=== PATIENT | male | born 1990 | race Caucasian/White ===

== ENCOUNTER 2019-09-30 11:55 | Inpatient (IN) | payer SELFPAY ==
[~2019-09-30] VITALS: Ht 180.3 cm; Wt 128.5 kg
[~2019-09-30 11:55] MED LIST: CLARITIN10 MG PO; CLINDAMYCIN HC300 MG PO; MEDROL DOSEPAK4 MG PO; PROVENTIL0.09 MG/AC IH; TRIMOX500 MG PO; ZITHROMAX Z PA250 MG PO
[2019-09-30 12:02] VITALS: BP 157/83
--- NOTE | 2019-09-30 12:15 | NUR ---
DOCUMENTED O2 SAT @ 87%. THIS WAS OBSERVED BY DR. KATE. I WAS ASKED TO DOCUMENT IT IN THE VITALS. I DID NOT OBSERVE. OXYGEN WAS STARTED VIA NASAL CANULA AT 4 LITERS.
[2019-09-30 12:31] LABS: BASO # 0.1 10*3/uL (0.0-0.1); BASO % 0.5 % (0.0-1.0); EOS # 0.3 10*3/uL (0.0-0.4); EOS % 1.4 % (1.0-4.0); HEMOGLOBIN 14.8 g/dl (14.0-18.0); LYMPH % 16.6 % (27.0-41.0); MEAN CELL VOLUME 91.6 fl (80.0-94.0); MEAN CORPUSCULAR HGB 30.1 pg (27.0-31.0); MEAN CORPUSCULAR HGB CONC 32.9 g/dl (33.0-37.0); MEAN PLATELET VOLUME 9.7 fl (9.6-12.3); MONO # 1.1 10*3/uL (0.1-1.0); MONO % 5.8 % (3.0-9.0); NEUT # 13.6 10*3/uL (2.3-7.9); NEUT % 75.3 % (47.0-73.0); PLATELET COUNT AUTOMATED 328 10*3/uL (130-400); RED BLOOD COUNT 4.91 10*6/uL (4.50-5.90); RED CELL DISTRI WIDTH 13.2 % (0-14.5)
[2019-09-30 12:44] LABS: ACT PARTIAL THROMBO TIME 27.3 SECONDS (20.0-32.1); INTERNATIONAL NORM RATIO 0.9 (2.0-3.5)
[2019-09-30 12:49] LABS: ALBUMIN 4.2 gm/dl (3.1-4.5); ALKALINE PHOSPHATASE 63 U/L (45-117); BUN 16 mg/dl (7-24); CHLORIDE 110 mmol/L (98-107); CREATININE 0.95 mg/dL (0.70-1.30); SGOT/AST 15 IU/L (3-35); SGPT/ALT 40 U/L (12-78); SODIUM 140 mmol/L (136-145)
[2019-09-30 13:31] VITALS: BP 132/62
[2019-09-30 14:02] VITALS: BP 148/78
[2019-09-30 15:53] VITALS: BP 161/67
[2019-09-30 16:30] VITALS: BP 149/76
--- NOTE | 2019-09-30 16:30 | NUR ---
A 29, admitted to , under the services of LUIS DANIEL Dominguez DO with a diagnosis of BRONCHITIS. Chief complaint is SHORTNESS OF BREATH. Patient arrived via stretcher from ER. Monitor applied. Initial assessment completed. Vital signs taken and recorded. LUIS DANIEL DOMINGUEZ DO notified of admission to the unit. Orders received. See assessment for past medical history, medications and allergies. Patient and/or family oriented to unit. [address] visitation policy reviewed. Clothing/patient valuable form completed. RHODA SUNSHINE
--- NOTE | 2019-09-30 19:50 | NUR ---
24 HR chart check completed.
[2019-09-30 20:00] VITALS: BP 135/51
--- NOTE | 2019-09-30 21:00 | NUR ---
AWAKE, WATCHING TV. NO DISTRESS NOTED. RESPIRATIONS EASY. LUNGS DIMINISHED WITH I&E WHEEZES. PULSE OX 95% 2L. OCCASIONAL PRODUCTIVE COUGH. CALL LIGHT WITHIN REACH. NO VOICED COMPLAINTS
[2019-10-01] VITALS: BP 147/68
--- NOTE | 2019-10-01 | NUR ---
SLEEPING. NO DISTRESS NOTED. RESPIRATIONS EASY. PULSE OX 95% 2L. VSS. CALL LIGHT WITHIN REACH
--- NOTE | 2019-10-01 06:00 | NUR ---
SLEPT THROUGHOUT NIGHT WITH NO DISTRESS NOTED. RESPIRATIONS EASY. O2 IN USE. CALL LIGHT WITHIN REACH. NO VOICED COMPLAINTS THIS SHIFT
[2019-10-01 06:48] LABS: HEMATOCRIT 43.7 % (42.0-52.0); HEMOGLOBIN 14.4 g/dl (14.0-18.0); MEAN PLATELET VOLUME 9.8 fl (9.6-12.3); PLATELET COUNT AUTOMATED 310 10*3/uL (130-400); RED CELL DISTRI WIDTH 13.2 % (0-14.5); WHITE BLOOD COUNT 15.2 10*3/uL (4.8-10.8)
[2019-10-01 07:03] LABS: BUN 11 mg/dl (7-24); CHLORIDE 109 mmol/L (98-107); CREATININE 0.85 mg/dL (0.70-1.30); PHOSPHOROUS 1.9 mg/dL (2.5-4.9); SODIUM 139 mmol/L (136-145)
[2019-10-01 07:13] LABS: PLATELET SUFFICIENCY NORMAL (NORMAL); TOTAL CELLS COUNTED 100 #CELLS
--- NOTE | 2019-10-01 09:00 | NUR ---
Senior Network Security Engineer in to talk to patient. Patient states lives at home with antonette. There are on steps in the home. Physician: none [facility]acy: [facility] Home health services: none Patient's level of ADLs: INDEPENDENT Patient has working utilities: all working DME: none Follow-up physician's appointment after d/c: will be made by hospitalist nurse director with doctor of patient's choice Does patient want to access PORTAL?: no Discharge plan discussed with patient, he lives at home with fiarturo, he is independent in adls and ambulation, he will return home when medically stable and denies any home needs. HERBERTH HAYES
--- NOTE | 2019-10-01 09:35 | NUR ---
pt was assessed for home oxygen. pt did not qualify. pt at rest spo2 92% ra, hr 79, rr, b/p 159/81 pt ambulated spo2 92-93% ra pt at rest spo2 94% ra, hr 99, rr 20, b/p 158/80 rn nottified and notified
--- NOTE | 2019-10-01 09:38 | NUR ---
pt instructed on flutter. pt tolerated well, pt can do on his own
[2019-10-01] MEDS ORDERED: PREDNISONE10 MG PO (10:11)
[2019-10-01] MEDS ORDERED: ZITHROMAX250 MG PO (10:11)
[2019-10-01] MEDS ORDERED: PROVENTIL HFA6.7 GM INH (10:11)
--- NOTE | 2019-10-01 10:59 | NUR ---
PT DISCHRGED HOME AT THIS TIME. PT INFORMED THAT HIS PRESCRIPTION WERE SENT TO [facility] TO BE FILLED. F/U CARE ARRANGED. PT AMBULATED OFF FLOOR.
== END 2019-10-01 10:59 | disposition home or self-care (01) | DRG 871 ==
LOC: ED 11:55 → 5E 13:41 → EDHOLD 13:41 → 5E 15:33
PROVIDERS: Emergency Medicine; Student in an Organized Health Care Education/Training Program; ADMIT Internal Medicine
DX: A41.9 Sepsis, unspecified organism (principal); J96.01 Acute respiratory failure with hypoxia; J40 Bronchitis, not specified as acute or chronic; F17.210 Nicotine dependence, cigarettes, uncomplicated; E87.8 Other disorders of electrolyte and fluid balance, not elsewhere classified; J98.6 Disorders of diaphragm; J45.20 Mild intermittent asthma, uncomplicated; E83.39 Other disorders of phosphorus metabolism; E83.41 Hypermagnesemia; R73.9 Hyperglycemia, unspecified; E66.01 Morbid (severe) obesity due to excess calories; Z87.01 Personal history of pneumonia (recurrent); Z82.49 Family history of ischemic heart disease and other diseases of the circulatory system; Z90.49 Acquired absence of other specified parts of digestive tract; Z68.39 Body mass index [BMI] 39.0-39.9, adult

== ENCOUNTER 2021-12-27 22:34 | Emergency (ER) | payer OTHER ==
[~2021-12-27] VITALS: Wt 136.1 kg
[~2021-12-27 22:34] MED LIST changes: +PREDNISONE10 MG PO; +PROVENTIL HFA6.7 GM INH; +ZITHROMAX250 MG PO
[2021-12-27] MEDS ORDERED: AUGMENTIN 875-875 MG PO (22:52)
== END 2021-12-27 23:02 | disposition home or self-care (01) ==
LOC: ED 22:34
DX: K04.7 Periapical abscess without sinus (principal); Z90.49 Acquired absence of other specified parts of digestive tract; Z87.891 Personal history of nicotine dependence

== ENCOUNTER 2024-12-27 01:48 | Emergency (ER) | payer SELFPAY ==
[~2024-12-27] VITALS: Ht 180.3 cm; Wt 133.4 kg
[~2024-12-27 01:48] MED LIST changes: +AUGMENTIN 875-875 MG PO
[2024-12-27 02:31] VITALS: BP 183/100
[2024-12-27 03:07] LABS: BASO # 0.1 10*3/uL (0.0-0.1); BASO % 0.5 % (0.0-1.0); EOS # 0.3 10*3/uL (0.0-0.4); EOS % 1.8 % (1.0-4.0); MEAN CELL VOLUME 89.2 fl (80.0-94.0); MEAN CORPUSCULAR HGB 29.8 pg (27.0-31.0); MEAN CORPUSCULAR HGB CONC 33.4 g/dl (33.0-37.0); MEAN PLATELET VOLUME 9.3 fl (9.6-12.3); MONO # 1.1 10*3/uL (0.1-1.0); MONO % 7.8 % (3.0-9.0); NEUT # 10.2 10*3/uL (2.3-7.9); NEUT % 71.1 % (47.0-73.0); PLATELET COUNT AUTOMATED 295 10*3/uL (130-400); RED BLOOD COUNT 4.93 10*6/uL (4.50-5.90); RED CELL DISTRI WIDTH 13.2 % (0-14.5); WHITE BLOOD COUNT 14.3 10*3/uL (4.8-10.8)
[2024-12-27 03:27] LABS: BUN 17 mg/dl (9-23); CHLORIDE 108 mmol/L (98-107); POTASSIUM 3.3 mmol/L (3.4-5.1)
[2024-12-27] MEDS ORDERED: cloNIDine Hydrochloride 0.1 MG TAB PO ONE (03:40)
[2024-12-27] MEDS ORDERED: POTASSIUM CHLORIDE 20 MEQ TAB PO ONE (03:40)
[2024-12-27] MEDS ORDERED: Amoxicillin/Clavulanate Pota 875 MG TAB PO ONE (03:40)
[2024-12-27] MEDS ORDERED: AMOX-CLAV 875-1 EACH PO (03:43)
== END 2024-12-27 03:48 | disposition home or self-care (01) ==
LOC: ED 01:48
PROVIDERS: Internal Medicine
DX: K02.9 Dental caries, unspecified (principal); K04.7 Periapical abscess without sinus; I16.0 Hypertensive urgency; E87.6 Hypokalemia; F17.200 Nicotine dependence, unspecified, uncomplicated; Z90.49 Acquired absence of other specified parts of digestive tract